=== PATIENT | female | born 1990 | race Caucasian/White ===

== ENCOUNTER 2024-02-06 04:03 | Observation (INO) | payer BC ==
--- NOTE | 2024-02-06 04:13 | ED ---
General Adult HPI - General Source: patient Mode of arrival: ambulatory Limitations: no limitations <Bk Del Rosario - Last Filed: 02/06/24 06:19> <Preston Kaur - Last Filed: 02/06/24 10:39> - General Chief complaint: Abdominal Pain Stated complaint: Gallbladder Attack, SOB Time Seen by Provider: 02/06/24 04:11 - History of Present Illness Initial comments: Dictation was produced using [employer] dictation software. please excuse any grammatical, word or spelling errors. Chief Complaint: 33-year-old female presents emergency department with chief complaint of gallbladder attack History of Present Illness: Patient 33-year-old female presents emergency department gallbladder attack. Patient states that during her last she was diagnosed with gallstones. Patient was diagnosed earlier this year around the time when her son was born in the spring. Patient had some pizza and all of a sudden started to have some right upper quadrant pain that radiates to the back. She does complain of nausea. States that the pain is a sharp grabbing pain that radiates to her posterior back. Denies any fever, chills or night sweats. She did not follow-up with general surgeon when she was diagnosed. The ROS documented in this emergency department record has been reviewed and confirmed by me. Those systems with pertinent positive or negative responses have been documented in the HPI. All other systems are other negative and/or noncontributory. (Bk Del Rosario) - Related Data Home Medications Medication Instructions Recorded Confirmed No Known Home Medications 02/06/24 02/06/24 Allergies Allergy/AdvReac Type Severity Reaction Status Date / Time No Known Allergies Allergy Verified 02/06/24 08:07 Review of Systems ROS Other: All systems not noted in ROS Statement are negative. <kB Del Rosario - Last Filed: 02/06/24 06:19> ROS Other: All systems not noted in ROS Statement are negative. <Preston Kaur - Last Filed: 02/06/24 10:39> ROS Statement: Those systems with pertinent positive or pertinent negative responses have been documented in the HPI. Past Medical History Past Medical History: No Reported History Past Surgical History: Tonsillectomy Past Psychological History: No Psychological Hx Reported Smoking Status: Never smoker Past Alcohol Use History: None Reported Past Drug Use History: None Reported <CarinBk D - Last Filed: 02/06/24 06:19> General Exam Limitations: no limitations <Bk Del Rosario - Last Filed: 02/06/24 06:19> - General Exam Comments Initial Comments: PHYSICAL EXAM: General Impression: Alert and oriented x3, n acute distress secondary to pain HEENT: Normocephalic atraumatic, extra-ocular movements intact, pupils equal and reactive to light bilaterally, mucous membranes moist. Cardiovascular: Heart regular rate and rhythm Chest: Able to complete full sentences, no retractions, no tachypnea Abdomen: abdomen soft, right upper quadrant palpatory tenderness, negative Elias sign, non-distended, no organomegaly Musculoskeletal: Pulses present and equal in all extremities, no peripheral edema Motor: no focal deficits noted Neurological: CN II-XII grossly intact, no focal motor or sensory deficits noted Skin: Intact with no visualized rashes Psych: Normal affect and mood (Bk Del Rosario) Course Vital Signs 02/06/24 02/06/24 02/06/24 04:09 04:12 06:12 Temperature 97.9 F 97.8 F Pulse Rate 78 72 60 Respiratory 19 18 16 Rate Blood Pressure 130/71 126/68 108/72 O2 Sat by Pulse 100 98 99 Oximetry EKG Findings - EKG Comments: EKG Findings:: My EKG interpretation: Ventricular rate 59, sinus bradycardia,. 130, QRS 101, QTc 410. No NE prolongation, no QTC prolongation, no ST or T-wave changes noted. Overall, this EKG is unremarkable <kB Del Rosario - Last Filed: 02/06/24 06:19> Medical Decision Making - Lab Data Result diagrams: 02/06/24 04:11 02/06/24 04:45 <Bk Del Rosario - Last Filed: 02/06/24 06:19> - Lab Data Result diagrams: 02/06/24 04:11 02/06/24 04:45 <Preston Kaur - Last Filed: 02/06/24 10:39> - Medical Decision Making Was pt. sent in by a medical professional or institution (, PA, ACCOUNTS RECEIVABLE ADMINISTRATOR, urgent care, hospital, or half-way...) When possible be specific @ -No Did you speak to anyone other than the patient for history (EMS, parent, family, police, friend...)? What history was obtained from this source @ -No Did you review nursing and triage notes (agree or disagree)? Why? @ -I reviewed and agree with nursing and triage notes Were old charts reviewed (outside hosp., previous admission, EMS record, old EKG, old radiological studies, urgent care reports/EKG's, half-way records)? Report findings @ -No old charts were reviewed Differential Diagnosis (chest pain, altered mental status, abdominal pain women, abdominal pain men, vaginal bleeding, musculoskeletal, weakness, fever, dyspnea, syncope, headache, dizziness, GI bleed, back pain, seizure, CVA, palpatations, mental health)? @ -Differential Abdominal Pain Women: Appendicitis, Cholecystitis, diverticulosis, ischemic bowel, pancreatitis, hepatitis, UTI, gastroenteritis, AAA, incarcerated hernia, bowel obstruction, co nstipation, inflammatory bowel, hepatitis, peptic ulcer disease, splenic infarction, perforated viscus, vulvitis, ovarian torsion, PID, kidney stone, placenta abruption, this is not meant to be an all-inclusive list EKG interpreted by me (3pts min.). @ -None done X-rays interpreted by me (1pt min.). @ -None done CT interpreted by me (1pt min.). @ -None done U/S interpreted by me (1pt. min.). @ -Pending What testing was considered but not performed or refused? (CT, X-rays, U/S, labs)? Why? @ -None What meds were considered but not given or refused? Why? @ -None Was smoking cessation discussed for >3mins.? @ -No Were there social determinants of health that impacted care today? How? (H omelessness, low income, unemployed, alcoholism, drug addiction, transportation, low edu. Level, literacy, decrease access to med. care, skilled nursing, rehab)? @ -No Was there de-escalation of care discussed even if they declined (Discuss DNR or withdrawal of care, Hospice)? DNR status @ -No What co-morbidities impacted this encounter? (DM, HTN, Smoking, COPD, CAD, Cancer, CVA, ARF, Chemo, Hep., AIDS, mental health diagnosis, sleep apnea, morbid obesity)? @ -None Was patient admitted / discharged? Hospital course, mention meds given and route, prescriptions, significant lab abnormalities, going to OR and other pertinent info. @ -33-year-old female presents to the emergency department with chief complaint of gallbladder attack. States that she was diagnosed with gallstones. Patient states her symptoms feel similar to previous attack. Vital signs are within acceptable limits. Afebrile. Negative Elias sign. Laboratory evaluation obtained. CBC, metabolic panel is unremarkable. Patient given medication to treat symptoms. Pending ultrasound. Patient care signed out to Dr. Kaur at 7 AM (Bk Del Rosario) Patient signed out to me pending results of gallbladder ultrasound. Briefly, patient presented for right upper quadrant tenderness with nausea and vomiting. Has a history of gallbladder attacks. Laboratory studies up until this point are within acceptable limits. Bilirubin is within normal limits. LFTs, alk phos within normal limits. Vitals within acceptable limits. Has received fluids, pain meds, Zofran. Currently resting comfortably. Lipase was not ordered and this was added on. Gallbladder ultrasound as interpreted by myself reveals cholecystitis with cholelithiasis. Patient has pericholecystic fluid. Gallbladder wall is thickened.. According to the aluminum molding machine operator, patient had sonographic Elias sign positive. At this time I contacted Dr. Waller the on-call surgeon. He accepted the patient onto his service. Was in agreement with plan for n.p.o., as needed analgesia meds and Zofran, maintenance fluids. Patient was started on IV Rocephin and Flagyl at his request for antibiotic choice. Patient was in agreement with plan for admission and this plan. Lipase is still pending at time of admission. Diagnosis/symptom? @ -Cholecystitis Acute, or Chronic, or Acute on Chronic? @ -Acute Uncomplicated (without systemic symptoms) or Complicated (systemic symptoms)? @ -Complicated Side effects of treatment? @ -None Exacerbation, Progression, or Severe Exacerbation] @ -No Poses a threat to life or bodily function? @ -Yes (Preston Kaur) - Lab Data Lab Results 02/06/24 02/06/24 02/06/24 Range/Units 04:11 04:45 04:45 WBC 9.3 (3.8-10.6) k/uL RBC 4.47 (3.80-5.40) m/uL Hgb 13.6 (11.4-16.0) gm/dL Hct 39.4 (34.0-46.0) % MCV 88.1 (80.0-100.0) fL MCH 30.4 (25.0-35.0) pg MCHC 34.5 (31.0-37.0) g/dL RDW 12.8 (11.5-15.5) % Plt Count 319 (150-450) k/uL MPV 6.8 Neutrophils % 70 % Lymphocytes % 21 % Monocytes % 4 % Eosinophils % 3 % Basophils % 1 % Neutrophils # 6.5 (1.3-7.7) k/uL Lymphocytes # 2.0 (1.0-4.8) k/uL Monocytes # 0.4 (0-1.0) k/uL Eosinophils # 0.3 (0-0.7) k/uL Basophils # 0.1 (0-0.2) k/uL PT 10.8 (10.0-12.5) sec INR 1.0 (<1.2) APTT 21.0 L (22.0-30.0) sec Sodium 142 (137-145) mmol/L Potassium 4.1 (3.5-5.1) mmol/L Chloride 104 (98-107) mmol/L Carbon Dioxide 31 H (22-30) mmol/L Anion Gap 7 mmol/L BUN 21 H (7-17) mg/dL Creatinine 0.66 (0.52-1.04) mg/dL Est GFR (CKD-EPI)AfAm >90 (>60 ml/min/1.73 sqM) Est GFR (CKD-EPI)NonAf >90 (>60 ml/min/1.73 sqM) Glucose 95 (74-99) mg/dL Calcium 9.8 (8.4-10.2) mg/dL Total Bilirubin 0.6 (0.2-1.3) mg/dL Conjugated Bilirubin 0.0 (0.0-0.3) mg/dL Unconjugated Bilirubin 0.3 (0.0-1.1) mg/dL Delta Bilirubin 0.3 H (0.0-0.2) mg/dL AST 35 (14-36) U/L ALT 17 (4-34) U/L Alkaline Phosphatase 68 (38-126) U/L Total Protein 7.5 (6.3-8.2) g/dL Albumin 4.6 (3.5-5.0) g/dL Lipase (23-300) U/L HCG, Quant <2.4 mIU/mL 02/06/24 Range/Units 04:45 WBC (3.8-10.6) k/uL RBC (3.80-5.40) m/uL Hgb (11.4-16.0) gm/dL Hct (34.0-46.0) % MCV (80.0-100.0) fL MCH (25.0-35.0) pg MCHC (31.0-37.0) g/dL RDW (11.5-15.5) % Plt Count (150-450) k/uL MPV Neutrophils % % Lymphocytes % % Monocytes % % Eosinophils % % Basophils % % Neutrophils # (1.3-7.7) k/uL Lymphocytes # (1.0-4.8) k/uL Monocytes # (0-1.0) k/uL Eosinophils # (0-0.7) k/uL Basophils # (0-0.2) k/uL PT (10.0-12.5) sec INR (<1.2) APTT (22.0-30.0) sec Sodium (137-145) mmol/L Potassium (3.5-5.1) mmol/L Chloride (98-107) mmol/L Carbon Dioxide (22-30) mmol/L Anion Gap mmol/L BUN (7-17) mg/dL Creatinine (0.52-1.04) mg/dL Est GFR (CKD-EPI)AfAm (>60 ml/min/1.73 sqM) Est GFR (CKD-EPI)NonAf (>60 ml/min/1.73 sqM) Glucose (74-99) mg/dL Calcium (8.4-10.2) mg/dL Total Bilirubin (0.2-1.3) mg/dL Conjugated Bilirubin (0.0-0.3) mg/dL Unconjugated Bilirubin (0.0-1.1) mg/dL Delta Bilirubin (0.0-0.2) mg/dL AST (14-36) U/L ALT (4-34) U/L Alkaline Phosphatase (38-126) U/L Total Protein (6.3-8.2) g/dL Albumin (3.5-5.0) g/dL Lipase 72 (23-300) U/L HCG, Quant mIU/mL Disposition <Bk Del Rosario - Last Filed: 02/06/24 06:19> Time of Disposition: 08:20 <Preston Kaur - Last Filed: 02/06/24 10:39> Clinical Impression: Cholecystitis Disposition: ADMITTED IP TO THIS HOSP Condition: Stable
[2024-02-06 05:01] LABS: Basophils # (A) 0.1 k/uL (0-0.2); Basophils % (A) 1 %; Eosinophils # (A) 0.3 k/uL (0-0.7); Eosinophils % (A) 3 %; HCT 39.4 % (34.0-46.0); HGB 13.6 gm/dL (11.4-16.0); Lymphocytes % (A) 21 %; MCH 30.4 pg (25.0-35.0); MCHC 34.5 g/dL (31.0-37.0); MCV 88.1 fL (80.0-100.0); Mean Platelet Volume 6.8; Monocytes # (A) 0.4 k/uL (0-1.0); Monocytes % (A) 4 %; Neutrophils # (A) 6.5 k/uL (1.3-7.7); Neutrophils % (A) 70 %; Platelet Count 319 k/uL (150-450); RBC 4.47 m/uL (3.80-5.40); RDW 12.8 % (11.5-15.5); WBC 9.3 k/uL (3.8-10.6)
[2024-02-06] MEDS: SODIUM CHLORIDE 0.9% 1,000 ML IV STA ×2 (05:06→09:32)
[2024-02-06] MEDS: ONDANSETRON 4 MG/2 ML VIAL IVP STA (05:06)
[2024-02-06] MEDS: MORPHINE SULFATE 4 MG/ML SYRINGE IVP PRN (05:10)
[2024-02-06 05:16] LABS: ALT 17 U/L (4-34); AST 35 U/L (14-36); African American GFR (CKD) >90 (>60 ml/min/1.73 sqM); Albumin 4.6 g/dL (3.5-5.0); Alkaline Phosphatase 68 U/L (38-126); Anion Gap 7 mmol/L; Bilirubin, Delta 0.3 mg/dL (0.0-0.2); Bilirubin,Unconjugated 0.3 mg/dL (0.0-1.1); Blood Urea Nitrogen 21 mg/dL (7-17); Calcium 9.8 mg/dL (8.4-10.2); Carbon Dioxide 31 mmol/L (22-30); Chloride 104 mmol/L (98-107); Glucose 95 mg/dL (74-99); Non-African American GFR(CKD) >90 (>60 ml/min/1.73 sqM); Potassium 4.1 mmol/L (3.5-5.1); Sodium 142 mmol/L (137-145); Total Bilirubin 0.6 mg/dL (0.2-1.3); Total Protein 7.5 g/dL (6.3-8.2)
[2024-02-06 05:30] LABS: Prothrombin Time 10.8 sec (10.0-12.5)
[2024-02-06 05:32] LABS: HCG,Quantitative Serum <2.4 mIU/mL
--- NOTE | 2024-02-06 07:40 | US ---
EXAMINATION TYPE: US abdomen limited DATE OF EXAM: 02/06/2024 COMPARISON: NONE CLINICAL INDICATION: Female, 33 years old with history of ruq pain; GB attack, stones since June TECHNIQUE: Multiple sonographic images of the right upper quadrant are obtained. FINDINGS: EXAM MEASUREMENTS: Liver Length: 17.8 cm Gallbladder Wall: 0.37 cm CBD: 0.4 cm Right Kidney: 10.6x5.6x4.1 cm CNC MACHINIST NOTES: Pancreas: Tail obscured by overlying bowel gas Liver: wnl Gallbladder: cholecystitis with associated cholelithiasis. pericholecystic fluid noted adjacent to G B Evidence for sonographic Elias's sign: patient had transducer tenderness at GB area CBD: wnl Right Kidney: wnl IMPRESSION: Correlate for acute cholecystitis.
[2024-02-06] MEDS ORDERED: NALOXONE 0.4 MG/ML 1 ML VIAL IV PRN (08:21)
[2024-02-06] MEDS: PANTOPRAZOLE 40 MG/10 ML VIAL IV SCH (09:42)
[2024-02-06] MEDS: metroNIDAZOLE-NS PMX 500 MG in SALINE 1 100ML.BAG IVPB SCH (10:24)
--- NOTE | 2024-02-06 15:52 | P.GSHP ---
History of Present Illness patient is a 33-year-old female presenting to [facility] with complaints of abdominal pain for the last several days. She states this has happened before since giving to her son. She admits to occasional nausea and vomiting. Was unable to tolerate a diet yesterday but now is feeling better and asking for food. Currently denies fevers chills shortness of breath or chest pain. - Review of Systems Comment: The patient denies any acute changes in his vision or hearing, no dysphagia or odynophagia, no chest pain or shortness of breath, no dysuria or hematuria, no headache, no runny nose, no rectal bleeding or melena, no unexplained weight loss [] Past Medical History Past Medical History: No Reported History Past Surgical History: Tonsillectomy Past Psychological History: No Psychological Hx Reported Smoking Status: Never smoker Past Alcohol Use History: None Reported Past Drug Use History: None Reported Medications and Allergies Home Medications Medication Instructions Recorded Confirmed Type No Known Home Medications 02/06/24 02/06/24 History Allergies Allergy/AdvReac Type Severity Reaction Status Date / Time No Known Allergies Allergy Verified 02/06/24 08:07 Surgical - Exam Osteopathic Statement: *. No significant issues noted on an osteopathic structural exam other than those noted in the History and Physical/Consult. Vital Signs Temp Pulse Resp BP Pulse Ox 97.9 F 78 19 130/71 100 02/06/24 04:09 02/06/24 04:09 02/06/24 04:09 02/06/24 04:09 02/06/24 04:09 gen: nad cv: rrr pul: non labored breathing abd: soft, non tender to palpation, no guarding or rebound tenderness Results - Labs 02/06/24 04:11 02/06/24 04:45 Abnormal Lab Results - Last 24 Hours (Table) 02/06/24 02/06/24 Range/Units 04:45 04:45 APTT 21.0 L (22.0-30.0) sec Carbon Dioxide 31 H (22-30) mmol/L BUN 21 H (7-17) mg/dL Delta Bilirubin 0.3 H (0.0-0.2) mg/dL Diabetes panel 02/06/24 Range/Units 04:45 Sodium 142 (137-145) mmol/L Potassium 4.1 (3.5-5.1) mmol/L Chloride 104 (98-107) mmol/L Carbon Dioxide 31 H (22-30) mmol/L BUN 21 H (7-17) mg/dL Creatinine 0.66 (0.52-1.04) mg/dL Glucose 95 (74-99) mg/dL Calcium 9.8 (8.4-10.2) mg/dL AST 35 (14-36) U/L ALT 17 (4-34) U/L Alkaline Phosphatase 68 (38-126) U/L Total Protein 7.5 (6.3-8.2) g/dL Albumin 4.6 (3.5-5.0) g/dL Calcium panel 02/06/24 Range/Units 04:45 Calcium 9.8 (8.4-10.2) mg/dL Albumin 4.6 (3.5-5.0) g/dL Pituitary panel 02/06/24 Range/Units 04:45 Sodium 142 (137-145) mmol/L Potassium 4.1 (3.5-5.1) mmol/L Chloride 104 (98-107) mmol/L Carbon Dioxide 31 H (22-30) mmol/L BUN 21 H (7-17) mg/dL Creatinine 0.66 (0.52-1.04) mg/dL Glucose 95 (74-99) mg/dL Calcium 9.8 (8.4-10.2) mg/dL Adrenal panel 02/06/24 Range/Units 04:45 Sodium 142 (137-145) mmol/L Potassium 4.1 (3.5-5.1) mmol/L Chloride 104 (98-107) mmol/L Carbon Dioxide 31 H (22-30) mmol/L BUN 21 H (7-17) mg/dL Creatinine 0.66 (0.52-1.04) mg/dL Glucose 95 (74-99) mg/dL Calcium 9.8 (8.4-10.2) mg/dL Total Bilirubin 0.6 (0.2-1.3) mg/dL AST 35 (14-36) U/L ALT 17 (4-34) U/L Alkaline Phosphatase 68 (38-126) U/L Total Protein 7.5 (6.3-8.2) g/dL Albumin 4.6 (3.5-5.0) g/dL Assessment and Plan Assessment: 33-year-old female with right upper quadrant abdominal pain suspicious for acute cholecystitis Continue IV antibiotics Okay for low-fat diet at this time will make nothing by mouth after midnight OR for left endoscopic cholecystectomy on 02/07/2024 at 9 AM Time with Patient: Greater than 30
[2024-02-06] MEDS ORDERED: HYDROcodone/APAP 5-325MG 1 EACH TAB PO PRN (15:53)
[2024-02-07] MEDS: ONDANSETRON 4 MG/2 ML VIAL IVP PRN (07:57)
[2024-02-07] MEDS: IV FLUID CONTINUATION 1,000 ML IV ONE ×2 (09:17→11:38)
[2024-02-07] MEDS ORDERED: fentaNYL (PF) 50 MCG/ML 2 ML AMP ONE (09:29)
[2024-02-07] MEDS ORDERED: HYDROmorphone (PF) 1 MG/ML ONE (09:29)
[2024-02-07] MEDS ORDERED: ACETAMINOPHEN IV (For NPO) 1,000 MG/100 ML VIAL ONE (09:29)
[2024-02-07] MEDS ORDERED: ROCURONIUM 10 MG/ML (5 ML VIAL) IV ONE (09:29)
[2024-02-07] MEDS ORDERED: NEOSTIGMINE 1 MG/ML 10 ML VIAL ONE (09:29)
[2024-02-07] MEDS ORDERED: GLYCOPYRROLATE 0.2 MG/ML 2 ML VIAL ONE (09:29)
[2024-02-07] MEDS ORDERED: SUCCINYLCHOLINE CHLORIDE 200 MG/10 ML VIAL IV ONE (09:29)
[2024-02-07] MEDS ORDERED: KETOROLAC 15 MG/ML 1 ML VIAL ONE (09:29)
[2024-02-07] MEDS ORDERED: ePHEDrine 50 MG/ML 1 ML VIAL ONE (09:29)
[2024-02-07] MEDS ORDERED: PROPOFOL 10 MG/ML 20 ML VIAL IV ONE (09:29)
[2024-02-07] MEDS: DEXAMETHASONE SOD PHOSPHATE 4 MG/ML 1 ML VIAL IVP STA (09:31)
[2024-02-07] MEDS: SCOPOLAMINE 1 MG/72 HR PATCH TRANSDERM STA (09:32)
[2024-02-07 09:38] LABS: Basophils # (A) 0.08 X 10*3/uL (0.00-0.10); Eosinophils % (A) 5.1 %; HCT 36.2 % (37.2-46.3); HGB 12.3 g/dL (12.0-15.0); Lymphocytes # (A) 2.78 X 10*3/uL (0.90-5.00); Lymphocytes % (A) 35.8 %; MCH 30.1 pg (27.0-32.0); MCV 88.5 FL (80.0-97.0); Mean Platelet Volume 9.8 FL (9.5-12.2); Monocytes # (A) 0.53 X 10*3/uL (0.20-1.00); Monocytes % (A) 6.8 %; NRBC Per 100 WBC 0 X 10*3/uL (0.00-0.01); Neutrophils # (A) 3.96 X 10*3/uL (1.80-7.70); Platelet Count 251 X 10*3/uL (140-440); RBC 4.09 X 10*6/uL (4.10-5.20); RDW 12.7 % (11.5-14.5); WBC 7.77 X 10*3/uL (4.50-10.00)
[2024-02-07] MEDS: LIDOCAINE 1%-EPI 1:100,000 20 ML VIAL SQ ONE (10:26)
[2024-02-07 10:37] LABS: ALT 18 U/L (8-44); AST 15 U/L (13-35); Alkaline Phosphatase 77 U/L (41-126); Blood Urea Nitrogen 14.7 mg/dL (9.0-27.0); Carbon Dioxide 22.7 mmol/L (21.6-31.8); Chloride 108 mmol/L (96-109); Globulin 2.1 g/dL (1.6-3.3); Glucose 86 mg/dL (70-110); Sodium 141 mmol/L (135-145); Total Bilirubin <0.2 mg/dL (0.3-1.2); Total Protein 6.1 g/dL (6.2-8.2)
--- NOTE | 2024-02-07 19:19 | P.OP ---
Date of Procedure: 02/07/24 Preoperative Diagnosis: Symptomatic Cholelithiasis Postoperative Diagnosis: Symptomatic Cholelithiasis Procedure(s) Performed: Laparoscopic Cholecystectomy Anesthesia: MAC Surgeon: Fabricio Chamorro Estimated Blood Loss (ml): 10 Pathology: other (Gallbladder) Condition: stable Disposition: PACU Description of Procedure: The patient was brought to the operating suite and placed in supine position. Endotracheal intubation was performed and anesthesia was given. The patient was prepped and draped in usual sterile fashion. Timeout was performed. An #11 blade was used to make an incision at [place] using an #11 blade and a 5 mm optiview was used to gain access to the abdomen. The abdomen was insufflated. Addition 5 mm ports and a 12 mm port was placed. The patient was positioned. The gallbladder was retracted by the fundus and infundibulum. The cystic artery and cystic duct were dissected out. I could clearly see where the cystic duct and artery were entering the gallbladder. A critical view of safety was obtained. There were two clips placed proximally and two clips placed distally on the cystic artery and the cystic duct. The cystic duct and the cystic artery were divided. Bovie electrocautery was used to take the gallbladder off of the liver. There was good hemostasis. The abdomen was irrigated. The gallbladder was removed with an Endocatch bag through a 12 mm port. The ports were removed. Bovie was used for hemostasis of the incisions. The incisions were closed with #4-0 Monocryl. Skin was applied to the incisions. Anesthesia was reversed and patient was awoken from anesthesia. Patient tolerated the procedure well and was sent to the PACU in stable condition
[2024-02-07] MEDS: MORPHINE SULFATE 4 MG/ML SYRINGE IV PRN (20:46)
[2024-02-08 07:47] VITALS: BP 129/78; PULSE 55; RESP 16; TEMP 98.6
--- NOTE | 2024-02-08 09:18 | P.PN ---
Progress Note - Text Progress Note Date: 02/08/24 KIRIT. Pain is controlled. Denies nausea and vomiting. Denies fevers and chills VSS General-NAD Abdomen-soft, incisions TTP, ND POD #1 Laparoscopic Cholecystectomy -Ok for discharge Fabricio Chamorro DO [facility] [phone]
--- NOTE | 2024-02-11 20:03 | P.DS ---
Providers Date of admission: 02/06/24 08:21 Attending physician: James Waller DO Primary care physician: Stated None Hospital Course: The patient was admitted for abdominal pain, imaging revealed cholecytitis. The patient was taken to the operating room and underwent a cholecystectomy without incident. The patient was observed for 24hrs and then discharged home in stable condition. Plan - Discharge Summary Discharge Rx Participant: Yes New Discharge Prescriptions: No Action No Known Home Medications Discharge Medication List No Known Home Medications 02/06/24 [History] Follow up Appointment(s)/Referral(s): None,Stated [Primary Care Provider] - 1-2 days Fabricio Chamorro DO [Medical Doctor] - 1 Week Patient Instructions/Handouts: *Surgery [facility] - (Anesthesia) Discharge Instructions Outpatient Surgery, *Surgery [facility] - Scopalamine Patch Instructions Activity/Diet/Wound Care/Special Instructions: Ok to take shower- do not scrub incisions Do not life over 10 pounds Regular Diet Call Dr Chamorro to schedule post op appointment and get note for work Discharge Disposition: HOME SELF-CARE
== END 2024-02-08 09:44 | disposition home or self-care (01) ==
LOC: EC 04:03 → 6NMEDSUR 08:21
PROVIDERS: ADMIT Surgery; ATTEND Surgery
DX: K80.12 Calculus of gallbladder with acute and chronic cholecystitis without obstruction (principal)
CPT/HCPCS: 36415; 76705; 80053; 82248; 83690; 84702; 85025; 85610; 85730; 87040; 88304; 93005; 99285